=== PATIENT | male | born 1995 | race African-American/Black ===

== ENCOUNTER 2016-11-03 02:52 | Emergency (ER) | payer OTHER, MEDICAID ==
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
[2016-11-03 03:27] VITALS: BP 109/66; PULSE 81; RESP 16; TEMP 97.9; O2SAT 91
== END 2016-11-03 03:21 | disposition home or self-care (01) ==
DX: F10.920 Alcohol use, unspecified with intoxication, uncomplicated (principal); F91.8 Other conduct disorders